=== PATIENT | female | born 1935 | race Caucasian/White ===

== ENCOUNTER → 2016-12-25 | Outpatient (CLI) | payer MEDICARE, BC ==
[~2016-12-25] MED LIST: DESYREL50 MG PO; HYDRODIURIL25 MG PO; K-TAB 10MEQ10 MEQ PO; KEFLEX500 MG PO; LASIX20 MG PO; LEVOTHROID (SY88 MCG PO; MAGNESIUM OXID400 MG PO; NORVASC5 MG PO; OMEPRAZOLE40 MG PO; TYLENOL325 MG PO
== END | disposition disaster alternative care site (69) ==
LOC: GRAD 11:50
DX: M54.5 Low back pain (principal); M47.896 Other spondylosis, lumbar region; S33.140A Subluxation of L4/L5 lumbar vertebra, initial encounter; M48.06 Spinal stenosis, lumbar region; X58.XXXA Exposure to other specified factors, initial encounter

== ENCOUNTER → 2017-02-03 | Day surgery (SDC) | payer MEDICARE | LOC: GPOC 01-27 14:00 → GSDC 10:37 | PROC: 3E0S33Z Introduction of Anti-inflammatory into Epidural Space, Percutaneous Approach (ICD-10-PCS; principal; 2017-02-03) | PROC: 3E0S3BZ Introduction of Anesthetic Agent into Epidural Space, Percutaneous Approach (ICD-10-PCS; 2017-02-03) | DX: M48.06 Spinal stenosis, lumbar region (principal); I10 Essential (primary) hypertension; Z90.710 Acquired absence of both cervix and uterus; Z90.49 Acquired absence of other specified parts of digestive tract; Z98.41 Cataract extraction status, right eye; Z98.42 Cataract extraction status, left eye | CPT/HCPCS: J1030; J1040 ==